=== PATIENT | female | born 1955 | race Two or more races ===

== ENCOUNTER 2016-09-26 19:41 | Emergency (ER) | payer OTHER ==
[~2016-09-26] VITALS: Ht 165.1 cm; Wt 106.6 kg
[2016-09-26] MEDS ORDERED: SIMVASTATIN40 MG ORAL (20:07)
[2016-09-26 20:10] VITALS: BP 128/76
[2016-09-26] MEDS ORDERED: DuoNeb 0.5-3(2.5)mg/3ml neb HHN ONE (20:30)
[2016-09-26] MEDS ORDERED: ZITHROMAX250 MG ORAL (20:32)
[2016-09-26] MEDS ORDERED: PREDNISONE20 MG ORAL (20:33)
[2016-09-26] MEDS ORDERED: ALBUTEROL SULF8.5 GM INH (20:33)
[2016-09-26 20:56] VITALS: BP 128/76
--- NOTE | 2016-09-26 21:50 | Emergency Room Report ---
History of Present Illness General Chief Complaint: Flu Like Symptoms Source: Patient Present Illness HPI Patient is a 61-year-old female who presented after increased cough and difficulty breathing. Patient had had gradual onset of symptoms. Patient reported having some sore throat. Patient had productive cough with yellow- green sputum. Patient had no neck stiffness. She denied any severe headache. Allergies: Coded Allergies: PENICILLINS (Verified Allergy, Unknown, 09/26/16) SULFA (SULFONAMIDE ANTIBIOTICS) (Verified Allergy, Unknown, 09/26/16) Patient History Past Medical History: see triage record Last Menstrual Period: n/a Now: No Reviewed Nursing Documentation: PMH: Agreed, PSxH: Agreed Nursing Documentation-PMH Past Medical History: No History, Except For Review of Systems All Other Systems: negative except mentioned in HPI Physical Exam Vital Signs Date Time Temp Pulse Resp B/P Pulse Ox O2 Delivery O2 Flow Rate FiO2 09/26/16 20:02 98.2 76 16 132/72 94 Room Air 09/26/16 20:38 21 Sp02 EP Interpretation: reviewed, normal General Appearance: normal inspection, well appearing, no apparent distress, alert, GCS 15 Head: atraumatic ENT: normal ENT inspection, hearing grossly normal, normal voice Neck: normal inspection, full range of motion, supple, no bony tend Respiratory: normal inspection, lungs clear, normal breath sounds, no respiratory distress, no retraction, no wheezing Cardiovascular #1: regular rate, rhythm, no edema Gastrointestinal: normal inspection, normal bowel sounds, non tender, soft, no guarding, no hernia Genitourinary: no CVA tenderness Musculoskeletal: normal inspection, back normal, normal range of motion Neurologic: normal inspection, alert, oriented x3, responsive, finisher plate III-XII nml as tested, speech normal Psychiatric: normal inspection, judgement/insight normal, mood/affect normal Skin: normal inspection, normal color, no rash Medical Decision Making Diagnostic Impression: Primary Impression: Bronchitis ER Course Patient presented for cough. Differential diagnosis included but was not limited to bronchitis, pneumonia, pulmonary embolism, pericarditis, asthma, foreign body. Patient's benign exam and does not appear to require any further imaging or laboratory testing at this time. The patient given breathing treatment with some improvement. The patient was given prescriptions for antibiotics as well as steroids.The patient is advised to follow up with primary care doctor in 1- 2 days. Patient is advised to return if any worsening condition or if any changes in status that are concerning. Last Vital Signs Date Time Temp Pulse Resp B/P Pulse Ox O2 Delivery O2 Flow Rate FiO2 09/26/16 20:56 98.2 84 18 128/76 97 Room Air 21 Status: improved Disposition: HOME, SELF-CARE Condition: Stable Scripts Albuterol Sulfate* (ALBUTEROL SULFATE MDI*) 8.5 Gm Hfa.aer.ad 2 PUFF INH Q6H, #1 INH 0 Refills Prov: Weston Feliciano 09/26/16 Prednisone* (PREDNISONE*) 20 Mg Tablet 40 MG ORAL DAILY, #10 TAB Prov: Weston Feliciano 09/26/16 Azithromycin* (ZITHROMAX*) 250 Mg Tablet 250 MG ORAL DAILY, #6 TAB 0 Refills Take two tables once daily for 1 day, then one tablet once daily for 4 days. Prov: Weston Feliciano 09/26/16 Referrals: [facility],REFERRING (PCP) Patient Instructions: Acute Bronchitis, [id number] Weston Feliciano Sep 26, 2016 21:50
== END 2016-09-26 20:56 | disposition home or self-care (01) ==
LOC: EMR 20:55
DX: J40 Bronchitis, not specified as acute or chronic (principal); Z88.0 Allergy status to penicillin; Z88.2 Allergy status to sulfonamides
CPT/HCPCS: 94640; 94664; 99284; J7620